=== PATIENT | female | born 1935 | race Caucasian/White ===

== ENCOUNTER 2016-08-14 18:43 | Emergency (ER) | payer MEDICARE, OTHER ==
[2016-08-14] MEDS ORDERED: HYDROMORPHONE HCL 1 MG/ML CPJ IM ONE (19:14)
--- NOTE | 2016-08-14 19:19 | Emergency Department Record ---
History of Present Illness - General Chief Complaint: Fall Injury Stated Complaint: FALL INJURY Time Seen by Provider: 08/14/16 19:13 Source: Patient Mode of Arrival: Ambulatory Limitations: No limitations - History of Present Illness Initial Comments: 81 yo female presents to ED with a CC of fall resulting in jury to the left shoulder and left wrist. Patient denies any injury to the head or neck, and the patient denies health problems other than arthritis and HTN. MD Complaint: Fall Onset/Timin -: Minutes(s) Fall From: From height (distance) When Fall Occurred: Just prior to arrival Fall Witnessed: Yes, by family Place Fall Occurred: Home Loss of Consciousness: None Prolonged Down Time?: No Symptoms Prior to Fall: None Location: Other Location - Extremities: Left: Shoulder, Forearm Severity: Moderate Severity scale (1-10): 6 Quality: Aching Associated Symptoms: Denies - [place] Coma Scale Eye Response: (4) Open spontaneously Motor Response: (6) Obeys commands Verbal Response: (5) Oriented Brett Total: 15 - Related Data Previous Rx's Medication Instructions Recorded Hydrocodone/Acetaminophen [[place] 1 tab PO Q6H PRN #10 tab 08/14/16 5mg/325mg] Allergies Allergy/AdvReac Type Severity Reaction Status Date / Time No Known Allergies Allergy no Verified 08/14/16 18:56 allergies Travel Screening - Travel/Exposure Within Last 30 Days Have you traveled within the last 30 days?: No Review of Systems Constitutional: Denies: Chills, Fever, Malaise, Night sweats Eyes: Denies: Eye discharge, Eye pain, Photophobia ENT: Denies: Congestion, Ear pain, Epistaxis Respiratory: Denies: Cough, Dyspnea Cardiovascular: Denies: Chest pain, Dyspnea on exertion Endocrine: Denies: Fatigue, Heat or cold intolerance Gastrointestinal: Denies: Abdominal pain, Nausea, Vomiting Genitourinary: Denies: Dysuria, Frequency Musculoskeletal: Reports: Arthralgia. Denies: Back pain, Gout, Joint swelling Skin: Denies: Bruising, Change in color, Change in hair/nails Neurological: Denies: Abnormal gait, Confusion, Headache, Seizure Psychiatric: Denies: Anxiety Hematological/Lymphatic: Denies: Anemia, Blood Clots Past Medical History - SOCIAL HISTORY Smoking Status: Never smoker Alcohol Use: None Drug Use: None - RESPIRATORY Hx Respiratory Disorders: No - CARDIOVASCULAR Hx Cardio Disorders: Yes Hx Hypertension: Yes - NEURO Hx Neuro Disorders: No - GI Hx GI Disorders: No - Hx Genitourinary Disorders: No - ENDOCRINE Hx Endocrine Disorders: Yes Hx Diabetes: Yes (diet controlled) - MUSCULOSKELETAL Hx Musculoskeletal Disorders: Yes Hx Arthritis: Yes - PSYCH Hx Psych Problems: No - HEMATOLOGY/ONCOLOGY Hx Hematology/Oncology Disorders: No Family Medical History Any Significant Family History?: No Physical Exam - General General Appearance: Alert, Oriented x3, Cooperative, Mild distress Limitations: No limitations - Head Head exam: Atraumatic, Normocephalic, Normal inspection Head exam detail: negative: Abrasion, Contusion, Lo's sign, General tenderness, Hematoma, Laceration - Eye Eye exam: Normal appearance. negative: Conjunctival injection, Periorbital swelling, Periorbital tenderness, Scleral icterus - ENT Ear exam: negative: Auricular hematoma, Auricular trauma Nasal Exam: negative: Active bleeding, Discharge, Dried blood, Foreign body Mouth exam: negative: Drooling, Laceration, Muffled voice, Tongue elevation - Neck Neck exam: Normal inspection. negative: Meningismus, Tenderness - Respiratory Respiratory exam: Normal lung sounds bilaterally. negative: Respiratory distress, Rhonchi, Stridor, Wheezes - Cardiovascular Cardiovascular Exam: Regular rate, Normal rhythm, Normal heart sounds - GI/Abdominal GI/Abdominal exam: Soft. negative: Pulsatile mass, Rebound, Rigid, Tenderness - Rectal Rectal exam: Deferred - exam: Deferred - Extremities Extremities exam: Tenderness, Other (TTP over the proximal shoulder, distal forearm/wrist. Strong radial pulse, compartments of the forearm and upper arm are soft on exam). negative: Calf tenderness, Pedal edema - Back Back exam: Reports: Normal inspection. Denies: CVA tenderness (R), CVA tenderness (L) - Neurological Neurological exam: Alert, Normal gait, Oriented X3 - Psychiatric Psychiatric exam: Normal affect, Normal mood - Skin Skin exam: Normal color. negative: Abrasion Type of lesion: negative: abrasion Course Vital Signs 08/14/16 18:52 Temperature 98.3 F Pulse Rate 66 Respiratory 18 Rate Blood Pressure 140/65 Pulse Ox 97 - Reevaluation(s) Reevaluation #1: 08/14/16 20:18 Left shoulder: No acute fracture identified, DDD Left Wrist: Non-displaced fracture distal radius dorsally, chronic scapho- lunate joint space widening Patient was updated on all results, will splint forearm and arrange for follow- up in [facility] with Dr. Phan . Patient was updated on all results and appears stable for discharge at this time. Disposition Disposition: Discharge Clinical Impression: Distal radius fracture, left Qualifiers: Encounter type: initial encounter Fracture type: closed Fracture morphology: unspecified fracture morphology Qualified Code(s): S52.502A - Unspecified fracture of the lower end of left radius, initial encounter for closed fracture Disposition: Home, Self-Care Condition: (2) Stable Instructions: Wrist Fracture in Adults (ED) Additional Instructions: Return to ED if your symptoms worsen or if you have any concerns. Coco as directed. Follow-up with Dr. Phan this week in the [facility]. Prescriptions: Hydrocodone/Acetaminophen [[place] 5mg/325mg] 1 tab PO Q6H PRN #10 tab PRN Reason: Pain - General Referrals: KAREN PHAN [DOCTOR OF OSTEOPATH] - [facility] [Provider Group] Forms: Patient Portal Access Time of Disposition: 20:23
[2016-08-14] MEDS ORDERED: HYDROCODONE/APAP 5/325MG TABLET PO ONE (22:08)
--- NOTE | 2016-08-18 08:21 | RADIOLOGY REPORT ---
EXAM: LEFT SHOULDER, THREE VIEWS HISTORY: FALL, LEFT SHOULDER INJURY AND PAIN. TECHNIQUE: Three views of the left shoulder were obtained. Comparison: None. Encounter: Initial. FINDINGS: No acute fracture or dislocation. Moderate degenerative change of the left acromioclavicular joint. The upper left ribs appear intact. IMPRESSION: ARTHRITIC CHANGE OF THE LEFT ACROMIOCLAVICULAR JOINT, OTHERWISE NEGATIVE LEFT SHOULDER EXAMINATION. JOB NUMBER: [id number] MTDD
--- NOTE | 2016-08-18 08:25 | RADIOLOGY REPORT ---
EXAM: LEFT WRIST, FOUR VIEWS HISTORY: FALL, INJURY, LEFT WRIST PAIN AND INJURY. TECHNIQUE: Four views of the left wrist were obtained. Comparison: Left hand 12/24/14. Encounter: Initial. FINDINGS: Osteopenia. Extensive dorsal soft tissue swelling of the left wrist. There is a chronic corticated ossicle dorsal to the proximal carpal row. There is a new vertical lucency projecting over the dorsal cortex of the distal left radial metaphysis on the lateral view for which acute nondisplaced fracture is not excluded. Chronic widening of the scapholunate interval consistent with scapholunate ligament tear. IMPRESSION: 1. FINDINGS EQUIVOCAL FOR NONDISPLACED FRACTURE LINE AT THE DORSAL ASPECT OF THE DISTAL LEFT RADIAL METAPHYSIS. 2. PERSISTENT WIDENING OF THE LEFT SCAPHOLUNATE INTERVAL CONSISTENT WITH LIGAMENTOUS INJURY. 3. DORSAL SOFT TISSUE SWELLING. JOB NUMBER: [id number] MTDD
--- NOTE | 2016-08-18 08:31 | CT SCAN REPORT ---
EXAM: CT OF THE LEFT SHOULDER WITH TWO DIMENSIONAL REFORMATS HISTORY: FELL, LANDED ON LEFT SHOULDER, LEFT SHOULDER PAIN. TECHNIQUE: Contiguous axial images from the C6 level to the mid left humeral diaphysis were obtained without IV contrast. Sagittal and coronal two dimensional reformatted images were obtained for better anatomic delineation. Comparison: Left shoulder radiograph 08/14/16. FINDINGS: Superior migration of the left humeral head which contacts the acromion process consistent with chronic rotator cuff tear and atrophy. Moderate osteoarthritic change of the acromioclavicular joint which is otherwise intact. Moderate osteoarthritic change of the glenohumeral joint with osteophytes and subcortical sclerosis. The scapula is intact. No widening of the coracoclavicular distance. There are a few tiny intraarticular bodies in the glenohumeral joint. The upper left ribs appear intact. There is increased attenuation in the subcutaneous fat at the anterolateral aspect of the proximal left humerus consistent with soft tissue contusion. IMPRESSION: 1. NO ACUTE OSSEOUS ABNORMALITY OF THE LEFT SHOULDER. 2. 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 3. MODERATE OSTEOARTHRITIC CHANGE OF THE LEFT ACROMIOCLAVICULAR JOINT AND GLENOHUMERAL JOINT WITH INTRAARTICULAR BODIES IN THE GLENOHUMERAL JOINT. JOB NUMBER: [id number] MTDD
== END 2016-08-14 22:25 | disposition home or self-care (01) ==
LOC: ER 18:43
DX: S52.502A Unspecified fracture of the lower end of left radius, initial encounter for closed fracture (principal); M25.512 Pain in left shoulder; I10 Essential (primary) hypertension; W17.89XA Other fall from one level to another, initial encounter; Y92.009 Unspecified place in unspecified non-institutional (private) residence as the place of occurrence of the external cause
CPT/HCPCS: 29125; 99283; 96372; 99284; 73030; 73110; 73200; J1170

== ENCOUNTER 2018-08-03 12:19 | Emergency (ER) | payer MEDICARE, OTHER ==
[2018-08-03] MEDS ORDERED: MECLIZINE 25 MG TABLET PO ONE (12:55)
--- NOTE | 2018-08-03 13:00 | Emergency Department Record ---
History of Present Illness - General Chief Complaint: Dizziness Stated Complaint: FALL,DIZZINESS Time Seen by Provider: 08/03/18 12:41 Source: Patient, Family Mode of Arrival: Wheelchair Limitations: No limitations - History of Present Illness Initial Comments: The patient is here due to falling and hitting her head 5 days ago. She states she has had chronic dizziness when she looks up for many months. Five days ago she looked up to clean something at home and fell backwards and passed out after hitting her head. She did hit her head on the floor and did have a significant LOC. The patient then did have a lifeline in place and 911 was alerted. She then woke up to EMS in her house. The patient states she was feeling better so she did not get looked at. Since she has had head and neck pain and has had significant and worsening dizziness with standing and looking up. MD Complaint: Dizziness, Difficulty walking Onset/Timin -: Days(s) Timing: Constant Description: Lightheadedness, Near-syncope, "Room spinning" History of Trauma: Yes (Fall and hit head.) Severity: Moderate Improves With: Remaining still Worsens With: Position Associated Symptoms: Syncope, Weakness - Brett Coma Scale Eye Response: (4) Open spontaneously Motor Response: (6) Obeys commands Verbal Response: (5) Oriented Brett Total: 15 - Symptoms of Stroke Onset of Symptoms Date: 07/29/18 Symptoms of stroke: Dizziness - Related Data Previous Rx's Medication Instructions Recorded Lisinopril [Prinivil] 10 mg PO DAILY #7 tab 08/03/18 Triamterene/Hydrochlorothiazid 1 each PO DAILY #7 capsule 08/03/18 [Triamterene-Hctz 37.5-25 mg Cp] Allergies Allergy/AdvReac Type Severity Reaction Status Date / Time No Known Allergies Allergy no Unverified 07/18/18 10:52 allergies Travel Screening - Travel/Exposure Within Last 30 Days Have you traveled within the last 30 days?: No - Travel/Exposure Within Last Year Have you traveled outside the [place] in the last year?: No Review of Systems Constitutional: Denies: Chills, Fever Eyes: Denies: Eye discharge ENT: Denies: Congestion Respiratory: Denies: Cough, Dyspnea Cardiovascular: Denies: Arrhythmia, Chest pain Endocrine: Denies: Fatigue Gastrointestinal: Denies: Nausea Genitourinary: Denies: Dysuria Musculoskeletal: Reports: Back pain (chronic.). Denies: Arthralgia Skin: Denies: Bruising Past Medical History - SOCIAL HISTORY Smoking Status: Never smoker Alcohol Use: None Drug Use: None - RESPIRATORY Hx Respiratory Disorders: No - CARDIOVASCULAR Hx Cardio Disorders: Yes Hx Hypertension: Yes - NEURO Hx Neuro Disorders: No - GI Hx GI Disorders: No - Hx Genitourinary Disorders: Yes Hx Bladder Problem: Yes - ENDOCRINE Hx Endocrine Disorders: No Hx Diabetes: No (not anymore- diet controlled.) - MUSCULOSKELETAL Hx Musculoskeletal Disorders: Yes Hx Arthritis: Yes - PSYCH Hx Psych Problems: No - HEMATOLOGY/ONCOLOGY Hx Hematology/Oncology Disorders: No Family Medical History Any Significant Family History?: No Physical Exam - General General Appearance: Alert, Oriented x3, Cooperative, No acute distress - Head Head exam: Atraumatic, Normocephalic, Normal inspection - Eye Eye exam: Normal appearance, PERRL, EOMI. negative: Nystagmus - ENT Throat exam: Normal inspection. negative: Tonsillar erythema, Tonsillar exudate - Neck Neck exam: Normal inspection, Full ROM. negative: Tenderness - Respiratory Respiratory exam: Normal lung sounds bilaterally. negative: Respiratory distress - Cardiovascular Cardiovascular Exam: Regular rate, Normal rhythm, Normal heart sounds - GI/Abdominal GI/Abdominal exam: Soft, Normal bowel sounds. negative: Tenderness - Extremities Extremities exam: Normal inspection, Full ROM, Normal capillary refill. negative: Tenderness - Back Back exam: Reports: Normal inspection - Neurological Neurological exam: Alert, Normal gait, Oriented X3. negative: Abnormal gait, Altered, Motor sensory deficit - Skin Skin exam: negative: Rash Course Vital Signs 08/03/18 12:21 Temperature 98.3 F Pulse Rate 72 Respiratory 18 Rate Blood Pressure 197/86 Pulse Ox 99 - Reevaluation(s) Reevaluation #1: I did discuss the issues with the patient and the need for F/U with her PCP next week. She also states she has been out of her BP medicines for 2 weeks and feels that is why her BP is elevated. Additionally she is up ambulating normally in the ED room # 4 with no ataxia or dizziness. 08/03/18 14:57 08/03/18 15:15 Reevaluation #2: I also did discuss the thyroid abnormalities on the CT and the need for F/U with her PCP. The patient and son do agree with the plan. 08/03/18 15:07 Medical Decision Making - Data Complexity MDM Data: Labs Ordered and/or Reviewed, X-Ray Ordered and/or Reviewed, EKG Ordered and/or Reviewed - Lab Data Result diagrams: 08/03/18 12:45 08/03/18 12:45 - EKG Data -: EKG Interpreted by Me EKG: No Acute Changes, Normal EKG - Radiology Data Radiology results: Report reviewed (Head and Neck CT: Neg for acute changes. Thyroid nodule.) Disposition Disposition: Discharge Clinical Impression: Head injury due to trauma Qualifiers: Encounter type: initial encounter Qualified Code(s): S09.90XA - Unspecified injury of head, initial encounter Disposition: Home, Self-Care Condition: (2) Stable Instructions: Dizziness (ED) Additional Instructions: Please continue your regular medicines and please restart your BP medicines. Please see your family doctor next week for recheck and return to the ER for any worsening symptoms. Prescriptions: Lisinopril [Prinivil] 10 mg PO DAILY #7 tab Triamterene/Hydrochlorothiazid [Triamterene-Hctz 37.5-25 mg Cp] 1 each PO DAILY #7 capsule Forms: Patient Portal Access Time of Disposition: 15:01 Quality - Quality Measures Quality Measures: Blunt Head Trauma (>2yr) - Blunt Head Trauma - Adult Quality Measure: Measure #415: Utilization of CT for Minor Blunt Head Trauma ICD10 Codes Entered: Yes View Details: Yes Was CT ordered: Yes Does Patient Have Any of the Following: Taking Antiplatelet Med Brett Score: Please complete Brett Coma Scale above Utilization of CT for Minor Blunt Head Trauma: Patient Excluded [[id number]] - Blood Pressure Screening View Details: Yes Does Patient Have Any of the Following: Active Dx of HTN Blood Pressure Classification: Pre-Hypertensive BP Reading Systolic Measurement: 197 Diastolic Measurement: 86 Screening for High Blood Pressure: Patient Exclusion, Hx of HTN [G9744]
[2018-08-03 13:15] LABS: BASO % 0.2 % (0-6); EOS % 0.9 % (0-6); GRAN % 78.3 % (47-80); HEMATOCRIT 41.1 % (35.0-47.0); HEMOGLOBIN 13.3 gm/dl (11.6-16.0); LYMPH % 15.6 % (16-45); MEAN CELL VOLUME 95.8 fl (81-97); MEAN CORPUSCULAR HGB CONC 32.4 g/dl (32-36); MEAN PLATELET VOLUME 9.9 fl (7.4-10.4); PLATELET COUNT 267 K/uL (130-400); RED BLOOD COUNT 4.29 M/uL (3.80-5.40); RED CELL DISTRIBUTION WIDTH 13.8 % (11.5-14.5); WHITE BLOOD COUNT W/O DIFF 9.8 K/uL (4.2-12.2)
[2018-08-03 13:27] LABS: PARTIAL THROMBOPLASTIN TIME 23.6 SECONDS (24.5-39.1); PROTHROMBIN TIME (PATIENT) 10.4 SECONDS (9.5-12.1)
[2018-08-03 13:58] LABS: BLOOD UREA NITROGEN 25 mg/dL (8-23); CREATININE 0.9 mg/dL (0.5-0.9); EST GLOMERULAR FILTRATION RATE > 60 mL/min; TOTAL PROTEIN 7.4 g/dL (6.6-8.7)
[2018-08-03 14:00] LABS: GLUCOSE,RANDOM 113 mg/dL (74-109)
[2018-08-03 14:03] LABS: ALB/GLOB RATIO 1.2 (1.1-1.8); ALKALINE PHOSPHATASE 56 U/L (45-87); ALT/SGPT 12 U/L (<33); AST/SGOT 15 U/L (10.0-35.0)
--- NOTE | 2018-08-03 14:51 | CT SCAN REPORT ---
EXAM: HEAD CT HISTORY: VERTIGO WHEN LOOKING UP. LOSS OF CONSCIOUSNESS FIVE DAYS AGO. NECK PAIN AND HEADACHE. TECHNIQUE: Noncontrast CT scan of the head was obtained. Comparison: None. Hand dominance: Right. FINDINGS: There is prominence of the ventricles and subarachnoid spaces compatible with atrophy. There is no mass or mass effect. No intra or extraaxial hemorrhage. Diffuse low density is seen in the periventricular, deep cerebral and subcortical white matter regions likely the result of chronic small vessel ischemic change. No CT evidence for large acute territorial infarct. No fracture or acute osseous abnormality identified. IMPRESSION: 1. ATROPHY AND CHRONIC SMALL VESSEL ISCHEMIC CHANGE. 2. NO MASS, HEMORRHAGE OR ACUTE INTRACRANIAL PROCESS. JOB NUMBER: [id number] [facility]
--- NOTE | 2018-08-03 14:57 | CT SCAN REPORT ---
EXAM: CT OF THE CERVICAL SPINE HISTORY: VERTIGO, LOSS OF CONSCIOUSNESS FIVE DAYS AGO, NECK PAIN AND HEADACHE. TECHNIQUE: CT of the cervical spine was performed without contrast. Comparison: None. FINDINGS: The cervical alignment and curvature are unremarkable. There is no fracture or acute osseous abnormality. Disk space narrowing is present throughout the cervical spine. Degenerative end plate spurring, facet arthritic changes, and uncovertebral spurring seen throughout the cervical spine. No obvious canal stenosis. Neural foraminal narrowing is present at multiple levels. There is enlargement with multiple nodules in the right lobe of the thyroid. Ultrasound could be performed for further assessment if clinically warranted. IMPRESSION: 1. NO FRACTURE OR ACUTE OSSEOUS ABNORMALITY IDENTIFIED. 2. MULTILEVEL DEGENERATIVE CHANGES THROUGHOUT THE CERVICAL SPINE. 3. NEURAL FORAMINAL NARROWING AT MULTIPLE LEVELS. 4. ENLARGED MULTINODULAR RIGHT LOBE OF THE THYROID COULD BE FURTHER ASSESSED WITH ULTRASOUND IF CLINICALLY WARRANTED. JOB NUMBER: [id number] MTDD
== END 2018-08-03 15:18 | disposition home or self-care (01) ==
LOC: ER 12:19
DX: S06.9X9A Unspecified intracranial injury with loss of consciousness of unspecified duration, initial encounter (principal); M54.2 Cervicalgia; R42 Dizziness and giddiness; R51 Headache; R53.1 Weakness; R26.2 Difficulty in walking, not elsewhere classified; E04.1 Nontoxic single thyroid nodule; I10 Essential (primary) hypertension; W01.198A Fall on same level from slipping, tripping and stumbling with subsequent striking against other object, initial encounter; Y92.009 Unspecified place in unspecified non-institutional (private) residence as the place of occurrence of the external cause
CPT/HCPCS: 70450; 72125; 80053; 84484; 85025; 85610; 85730; 93005; 93010; 99284